=== PATIENT | female | born 1955 | race Caucasian/White ===

== ENCOUNTER 2020-03-13 20:37 | Emergency (ER) | payer MEDICARE, SELFPAY ==
[2020-03-13 20:40] VITALS: BP 198/92; PULSE 89; RESP 16; TEMP 36; O2SAT 100
--- NOTE | 2020-03-13 21:21 | W.ED.GENAD ---
Discharge Plan Disposition Patient Disposition: HOME Condition: Good Discharge Details Chief Complaint: Laceration Clinical Impression: Laceration of left leg, Right ankle sprain Primary Care Provider: Unknown,Unknown ED Provider: David Zapata Home Meds and New Rx's Prescriptions: No Action No Known Home Meds RF: 0 Discharge Instructions Instructions: Laceration (ED) Additional Instructions: Please leave the dressing on for 24 hours, then you may remove and begin cleaning the wound at least twice a day with soap and water. Continue to apply antibiotic ointment. Do not directly soak the area. Watch for any signs of infection and return if any increasing redness, swelling, pain, drainage. Please return in 7 days for reassessment. They may decide to take the sutures out then or wait an additional 3 days. Please use the crutches to keep weight off your right ankle for the time being, after 3 days of nonweightbearing you can gradually apply weight as tolerated to your right ankle. Please take Tylenol and Motrin to help with pain and swelling, ice the ankle frequently, and use an Kevin wrap to keep the swelling down. If you notice any worsening of your symptoms, or any new symptoms such as vomiting, diarrhea, fever, chills, shortness of breath, chest pain, numbness, weakness, or fainting , please return immediately to the emergency department for reevaluation. Please follow up with your primary care provider as soon as possible for reassessment and reevaluation. As always, it was a pleasure participating in your medical care today. Medical Decision Making 65-year-old female with no past medical history presents today for evaluation of laceration to her right redman. Patient states that 4 hours ago she was moving a snowplow when it slipped, and caught her anterior redman on the right scraped down and then cut the bottom aspect. She developed swelling over the right lateral ankle. At the time the patient washed it with water, and then subsequently alcohol. She bandaged it then took Motrin. By the time she arrived she states that her pain is 0 out of 10. Aside for minimal tenderness with palpation she denies any other complaints. She has not had a tetanus shot in years. She denies any numbness tingling or weakness otherwise. No other complaints at this time. Physical exam demonstrates a 8 cm laceration, chevron shaped with the central point pointing proximally. No evidence of deep structure involvement. Subcutaneous fat has been lacerated. There is evidence of a small vessel that has clotted off, venous in nature, not arterial. To subcutaneous sutures were placed followed by 13 superficial sutures. Patient does have mild tenderness over the right lateral malleolus of the ankle, but no deformity, good strength and movement otherwise. I did discuss imaging options for the patient including of the redman and ankle and at this time through notable discussion, weighing the risks and benefits, and a shared decision making process the patient has refused imaging at this time stating that she feels that since she is able to walk on it without significant pain there is no concern for break. Patient is of an appropriate age to make decisions. The patient is of sound mind, appears clinically sober, and has capacity to make decisions by my clinical exam. Respecting the patient's wishes we will hold off on imaging. Tetanus was updated here, she tolerated the suturing very well. Recommend return in 7 days for wound recheck, potential suture removal in 7 to 10 days. I have extensively reviewed the treatment plan and discharge instructions with the patient. I have addressed all patient concerns at this time. The patient was made aware of what symptoms to monitor for that would warrant a return to the emergency department. Discussed the plan with the patient, they demonstrate verbal understanding and agreement with our assessment and plan at this time. Also did recommend Kevin wrap, Tylenol, Motrin, and crutches/nonweightbearing for 3 days. HPI General Date/Time Provider Initiated Documentation: 03/13/20 20:37. HPI Narrative: 65-year-old female with no past medical history presents today for evaluation of laceration to her right redman. Patient states that 4 hours ago she was moving a snowplow when it slipped, and caught her anterior redman on the right scraped down and then cut the bottom aspect. She developed swelling over the right lateral ankle. At the time the patient washed it with water, and then subsequently alcohol. She bandaged it then took Motrin. By the time she arrived she states that her pain is 0 out of 10. Aside for minimal tenderness with palpation she denies any other complaints. She has not had a tetanus shot in years. She denies any numbness tingling or weakness otherwise. No other complaints at this time. Related Data Home Medications Medication Instructions Recorded Confirmed Unknown [No Known Home Meds] 03/13/20 03/13/20 Allergies Allergy/AdvReac Type Severity Reaction Status Date / Time No Known Allergies Allergy Unverified 03/13/20 20:45 General Stated Complaint: Laceration JUAN A: 4 Review of Systems All systems reviewed & are unremarkable except as noted in HPI and below PFSH Medical History No pertinent past medical history (Acute) Surgical History No pertinent past surgical history (Acute) Social History Smoking/Tobacco Use Status: Never Alcohol Intake: never Drug use: Never Substance use type: does not use Do you feel safe at home: Yes Do you feel safe in your relationship?: Yes Exam Narrative Exam Narrative: 1.Const: Well-nourished, Well-developed, appearing stated age 2.Eyes: PERRL, no conjunctival injection, and symmetrical lids. 3.ENT: Atraumatic external nose and ears. Moist MM. Neck: Symmetric, trachea midline, No thyromegaly. 4.CVS: +S1/S2, No murmurs or gallops. Peripheral pulses 2+ and equal in all extremities. Brisk capillary refill in all extremities. 5.RESP: Unlabored respiratory effort. Clear to auscultation bilaterally. No wheezes rales or rhonchi 6.GI: Soft, Nontender/Nondistended, No hepatosplenomegaly. No guarding or rebound. 7.MSK: The patient's right lower extremity demonstrates an abrasion over the mid third of the tibia and then just proximal to the ankle there is a chevron shaped laceration roughly 7 to 8 cm in total length. Pointing proximally. There is a single vessel that appears to have clotted off, it is superficial. No arterial bleeding or active bleeding otherwise. The area demonstrates intact fascial boundaries, no penetration into the deep layers. Patient demonstrates good flexion and extension at the ankle, good dorsiflexion of the toes. Dorsalis pedis and posterior tibial pulse +2 bilaterally, capillary refill brisk. Right ankle demonstrates mild swelling and minimal tenderness of the right lateral malleolus. No laxity in the ankle joint. 8.Skin: Warm, please see musculoskeletal 9.Neuro: behavioral health counselor II-XII grossly intact. Sensation grossly intact, no focal neurologic deficits. 10.Psych: (AAO) x3. Appropriate mood and affect Course Vital Signs Vital signs: Vital Signs Temperature 36 C L 03/13/20 20:40 Pulse 89 03/13/20 20:40 Respiratory Rate 16 03/13/20 20:40 Blood Pressure 198/92 H 03/13/20 20:40 Pulse Oximetry 100 03/13/20 20:40 Temperature 36 C L 03/13/20 20:40 Temperature Source Temporal Artery Scan 03/13/20 20:40 Pulse 89 03/13/20 20:40 Respiratory Rate 16 03/13/20 20:40 Respiratory Effort Non-Labored 03/13/20 20:45 Blood Pressure 198/92 H 03/13/20 20:40 Blood Pressure Position Sitting 03/13/20 20:40 Pulse Oximetry 100 03/13/20 20:40 Oxygen Delivery Method Room Air 03/13/20 20:40 Oxygen Flow Rate 0 03/13/20 20:40 Pain Level 0 03/13/20 20:40 Procedures Laceration Laceration 1: Site: lower extremity (Right redman/ankle) Side (If applicable): right Size (cm): 9 Description: linear and flap Depth: simple, single layer Local Anesthetic: Lidocaine 1% Amount of anesthesia used (mL): 5 Pre-repair: wound explored, irrigated extensively and deep structures intact Skin layer closed with: nylon Size (cm): 4-0 Number of sutures: 13 Technique: simple, interrupted Subcutaneous layer closed with: vicryl Size: 4-0 Number of sutures: 2 Technique: simple, interrupted
== END 2020-03-13 21:45 | disposition home or self-care (01) ==
PROVIDERS: Emergency Provider Student in an Organized Health Care Education/Training Program
DX: S81.811A Laceration without foreign body, right lower leg, initial encounter (principal); S93.401A Sprain of unspecified ligament of right ankle, initial encounter; W31.89XA Contact with other specified machinery, initial encounter
CPT/HCPCS: 12034; 90471

== ENCOUNTER 2020-03-23 12:19 | Emergency (ER) | payer MEDICARE, SELFPAY ==
[2020-03-23 12:24] VITALS: BP 175/74; PULSE 93; RESP 16; TEMP 36.8; O2SAT 99
--- NOTE | 2020-03-23 12:34 | ED.GENADUL_ITS ---
Discharge Plan Disposition Patient Disposition: HOME Condition: Stable Discharge Details Clinical Impression: Visit for suture removal Primary Care Provider: Unknown,Unknown ED Provider: Vivek Hi Home Meds and New Rx's Prescriptions: New amoxicillin-pot clavulanate [Augmentin] 875-125 mg tablet 1 tab PO BID Qty: 14 RF: 0 Discharge Instructions Instructions: Stitches Removal (ED) Additional Instructions: if you have spreading redness, fevers or severe worsening pain return to the emergency department Medical Decision Making Patient had sutures placed in right lower anterior foot after a snow plow fell on her. THe wound is well healed but does have surrounding erythema about 2cm no discharge no severe pain or warmth. Will have nursing remove sutures and start her on augmentin due to concern for wound infection, return precautions given. Has no severe pain or crepitus or tenderness so doubt nec fasc and no fluctuance so doubt abscess Differential Diagnosis Differential Diagnosis: wound infection, suture removal HPI General Mode of arrival: ambulatory . Date/Time Provider Initiated Documentation: 03/23/20 12:29 . Limitations to Documentation: no limitations . Information obtained by: patient . History of Present Illness 65 year old F presents to the emergency department with the chief complaint of suture removal, Patient started experiencing this day(s) (10) No relieving factors improve symptom(s), No exacerbating factors reported . Patient notes no other symptoms.. Related Data Home Medications Medication Instructions Recorded Confirmed amoxicillin-pot clavulanate 1 tab PO BID #14 tab 03/23/20 [Augmentin] Previous Rx's Medication Instructions Recorded amoxicillin-pot clavulanate 1 tab PO BID #14 tab 03/23/20 [Augmentin] Allergies Allergy/AdvReac Type Severity Reaction Status Date / Time No Known Allergies Allergy Unverified 03/23/20 12:27 General Stated Complaint: SutureRem JUAN A: 5 Review of Systems All systems reviewed & are unremarkable except as noted in HPI and below Constitutional Constitutional: Denies chills, Denies fever(s) and Denies weakness ENT Ears, Nose, Mouth, and Throat: Denies change in voice Cardiovascular Cardiovascular: Denies chest pain and Denies dyspnea Respiratory Respiratory: Denies cough and Denies dyspnea Gastrointestinal Gastrointestinal: Denies abdominal pain, Denies nausea and Denies vomiting Musculoskeletal Musculoskeletal: Denies joint swelling Neurologic Neurologic: Denies weakness [facility] Medical History (Updated 03/23/20 @ 12:38 by Vivek Hi MD) No pertinent past medical history Surgical History No pertinent past surgical history Social History Smoking/Tobacco Use Status: Never Alcohol Intake: never Drug use: Never Substance use type: does not use Do you feel safe at home: Yes Do you feel safe in your relationship?: Yes Exam Const General: no acute distress Orientation: alert HENMT Head: normal to inspection Ears: external ears normal General nose exam: external nose normal Mouth: moist mucous membranes Eyes General: appearance normal, both eyes and all related structures Neck Neck: normal visual inspection Resp Effort & Inspection: normal respiratory effort and able to speak in complete sentences Cardio Rate: regular rate Skin General skin exam: no rashes or lesions noted Neuro General: patient alert and patient oriented x3 Extrem General: full ROM and capillary refill normal Psych Mental Status: mental status grossly normal Course Vital Signs Vital signs: Vital Signs Temperature 36.8 C 03/23/20 12:24 Pulse 93 H 03/23/20 12:24 Respiratory Rate 16 03/23/20 12:24 Blood Pressure 175/74 H 03/23/20 12:24 Pulse Oximetry 99 03/23/20 12:24 Temperature 36.8 C 03/23/20 12:24 Temperature Source Skin 03/23/20 12:24 Pulse 93 H 03/23/20 12:24 Respiratory Rate 16 03/23/20 12:24 Respiratory Effort 03/23/20 12:27 Blood Pressure 175/74 H 03/23/20 12:24 Blood Pressure Position Sitting 03/23/20 12:24 Pulse Oximetry 99 03/23/20 12:24 Oxygen Delivery Method Room Air 03/23/20 12:24 Oxygen Flow Rate 0 03/23/20 12:24 Pain Level 2 03/23/20 12:24 Comment 03/23/20 12:24
== END 2020-03-23 12:39 | disposition home or self-care (01) ==
PROVIDERS: Emergency Provider Emergency Medicine
DX: S81.812D Laceration without foreign body, left lower leg, subsequent encounter (principal); W20.8XXD Other cause of strike by thrown, projected or falling object, subsequent encounter; L53.8 Other specified erythematous conditions; Z48.02 Encounter for removal of sutures
CPT/HCPCS: 99282

== ENCOUNTER 2020-04-03 14:17 | Emergency (ER) | payer MEDICARE, SELFPAY ==
[2020-04-03 14:24] VITALS: BP 186/89; PULSE 82; RESP 18; TEMP 36.7; O2SAT 100
--- NOTE | 2020-04-03 15:00 | DI.RAD_ITS ---
EXAM: XR TIB/FIB RT CLINICAL HISTORY: pain, slow healing anterior wound. TECHNIQUE: 2D digital imaging was performed. COMPARISON: No exams were available for comparison FINDINGS: BONES: No acute fracture is present. No bony destructive lesion is seen. Visualized portion of knee a nd ankle joints are unremarkable. SOFT TISSUE: Normal. IMPRESSION: Unremarkable radiographs of the right tibia and fibula. DATA REPOSITORY: RADIATION DOSE DELIVERED:
--- NOTE | 2020-04-03 15:00 | DI.US_ITS ---
EXAM: US LOWER EXTREMITY VENOUS RT CLINICAL HISTORY: RLE swelling, redman wound TECHNIQUE: Right lower extremity venous ultrasound performed using grayscale, color-flow, and spectr al Doppler analysis. COMPARISON: No exams were available for comparison FINDINGS: The right common femoral, femoral and popliteal veins demonstrate normal compressibility, augmentatio n, and color Doppler. The posterior tibial veins are patent. The saphenofemoral junction is unremark able. There is no evidence of a Herbert cyst. Mild edema in the soft tissues. IMPRESSION: No DVT. DATA REPOSITORY:
--- NOTE | 2020-04-03 15:07 | W.ED.GENAD ---
Discharge Plan Disposition Patient Disposition: HOME Condition: Stable Discharge Details Clinical Impression: Cellulitis Primary Care Provider: Unknown,Unknown ED Provider: El Evans Home Meds and New Rx's Prescriptions: New cephalexin 500 mg capsule 500 mg PO TID 7 Days Qty: 21 RF: 0 Continued acetaminophen [Tylenol] 325 mg Tablet 325 mg PO QID PRNRF: 0 Discharge Instructions Instructions: Cellulitis (ED) Additional Instructions: Take Keflex as prescribed. Wet to dry dressings for the next 4 to 5 days and then may let go to air dry. Elevate the leg above the level of the heart for 20 minutes 4-5 times daily and while at rest to reduce swelling. We will place her in a wound care management list to arrange outpatient follow-up and establish primary care. Return if the swelling increases, you develop chest pain or shortness of breath, or any other acute concerns. Medical Decision Making 65-year-old female presents from home. She injured her right anterior tibia by dropping a snowplow vertically on it on March 13. She was seen here for suture repair, seen for suture removal and probable wound infection on March 23. She was prescribed 7 days of amoxicillin which she has finished. She now has right lower extremity edema, pain with walking, poor healing central part of the laceration. Diagnosis would include underlying osteomyelitis, progressive deep space infection, poor healing superficial laceration with mild persistent cellulitis. Must also exclude DVT given the edema. Patient referred for x-ray, ultrasound, laboratory work including inflammatory markers. Her ultrasound shows edema but no evidence of DVT. X-ray unremarkable. Labs are reassuring. We will get her regular doctor. I will place her on Keflex and have her perform wet-to-dry dressings at home. I offered a referral to the [facility] wound [facility] clinic which she declines. She is stable and improved at this time appropriate discharge to home. Lab Data Lab results reviewed: Yes I reviewed the patient's lab results. Labs: Laboratory Results - last 24 hr 04/03/20 04/03/20 15:25 15:25 WBC 4.87 RBC 3.44 L Hgb 10.7 L Hct 33.0 L MCV 95.9 H MCH 31.1 MCHC 32.4 RDW 12.2 Plt Count 403 H MPV 9.4 Immature Gran % 0.2 Neutrophils % 68.4 Lymphocytes % 20.7 Monocytes % 7.6 Eosinophils % 2.7 Basophils % 0.4 Nucleated RBC % 0 Absolute Neutrophils 3.33 Absolute Lymphocytes 1.01 L Absolute Monocytes 0.37 Absolute Eosinophils 0.13 Absolute Basophils 0.02 Sodium 135 L Potassium 4.2 Chloride 100 Carbon Dioxide 27.2 Anion Gap 7.8 BUN 21 H Creatinine 0.97 Estimated GFR/1.73 m2 57.46 Glucose 112 H Calcium 9.0 C-Reactive Protein 0.24 HPI General Mode of arrival: ambulatory. Date/Time Provider Initiated Documentation: 04/03/20 14:20. Limitations to Documentation: no limitations. Information obtained by: patient. History of Present Illness 65 year old F presents to the emergency department with the chief complaint of Slow healing right lower extremity wound, pain, swelling, described as moderate, Quality is described as dull and constant, and is localized to the right and lower extremity. Patient reports no radiation. Patient started experiencing this day(s) and it has been constant. No relieving factors improve symptom(s), No exacerbating factors reported . Patient notes denies fever/chills and weakness. Patient did receive the following treatments prior to arrival, other (Status post 7 days amoxicillin) Related Data Home Medications Medication Instructions Recorded Confirmed acetaminophen [Tylenol] 325 mg PO QID PRN 04/03/20 04/03/20 cephalexin 500 mg PO TID 7 Days #21 cap 04/03/20 Previous Rx's Medication Instructions Recorded cephalexin 500 mg PO TID 7 Days #21 cap 04/03/20 Allergies Allergy/AdvReac Type Severity Reaction Status Date / Time No Known Allergies Allergy Unverified 04/03/20 14:29 General Stated Complaint: Orthopedic JUAN A: 3 Review of Systems Narrative: Denies fever or chills. Pain with walking. Positive swelling right lower extremity. 7 systems reviewed and otherwise negative. [facility] Medical History (Updated 04/03/20 @ 17:50 by El Evans MD) No pertinent past medical history Surgical History No pertinent past surgical history Social History Smoking/Tobacco Use Status: Never Alcohol Intake: never Drug use: Never Substance use type: does not use Do you feel safe at home: Yes Do you feel safe in your relationship?: Yes Exam Narrative Exam Narrative: GEN: awake, alert, oriented 3. Pleasant, well groomed, interactive. HEAD: Normocephalic, atraumatic ENT: Mucous membranes moist, oropharynx unremarkable, External ear exam unremarkable EYES: PERRL, EOMI EXT: Full ROM, right lower extremity pretibial edema, slightly cool to the touch, chevron shaped laceration with surrounding hyperemia and central area of granulation tissue and a white eschar. 2+ DP bilaterally. Left lower extremity unremarkable. Motor 5 out of 5 throughout. Sensation within normal limits. Neuro: Grossly normal neurologic exam, conversant, interactive. Psych: Speech fluent, thoughts congruent, affect normal Course Vital Signs Vital signs: Vital Signs Temperature 36.7 C 04/03/20 14:24 Pulse 82 04/03/20 14:24 Respiratory Rate 18 04/03/20 14:24 Blood Pressure 186/89 H 04/03/20 14:24 Pulse Oximetry 100 04/03/20 14:24 Temperature 36.7 C 04/03/20 14:24 Temperature Source Temporal Artery Scan 04/03/20 14:24 Pulse 82 04/03/20 14:24 Respiratory Rate 18 04/03/20 14:24 Respiratory Effort Non-Labored 04/03/20 14:32 Blood Pressure 186/89 H 04/03/20 14:24 Blood Pressure Position Sitting 04/03/20 14:24 Pulse Oximetry 100 04/03/20 14:24 Oxygen Delivery Method Room Air 04/03/20 14:24 Oxygen Flow Rate 0 04/03/20 14:24 Pain Level 0 04/03/20 14:24
[2020-04-03] MEDS: Normal Saline Flush 10 ML SYR IVP (15:31)
[2020-04-03 15:35] LABS: Abs Immature Grans 0.01 10^3/uL (0.0-0.06); Absolute Basophil Count 0.02 10^3/uL (0.0-0.2); Absolute Eosinophil Count 0.13 10^3/uL (0.0-0.7); Absolute Lymphocyte Count 1.01 10^3/uL (1.2-3.4); Absolute Monocyte Count 0.37 10^3/uL (0.1-0.8); Absolute Neutrophil Count 3.33 10^3/uL (1.2-6.7); Basophils % 0.4; Eosinophils % 2.7; HGB 10.7 g/dL (11.2-15.7); Immature Grans % 0.2; Lymphocytes % 20.7; MCH 31.1 pg (27.0-33.0); MCHC 32.4 % (32.0-36.0); MCV 95.9 fL (80-95); MPV 9.4 fL (8.0-11.0); Monocytes % 7.6; Neutrophils % 68.4; Nucleated RBC 0 %; Platelet Count 403 10^3/uL (130-400); RBC 3.44 10^6/uL (3.93-5.22); RDW 12.2 % (11.7-14.6); RDW-SD 42.6 fL; WBC 4.87 10^3/uL (4.4-10.8)
[2020-04-03 15:44] LABS: Anion Gap 7.8 mmol/L (3-11); BUN 21 mg/dL (7-18); C-Reactive Protein 0.24 mg/dL (0.0-0.3); CO2 27.2 mmol/L (21.0-32.0); CREATININE 0.97 mg/dL (0.55-1.02); Chloride 100 mmol/L (98-107); Estimated GFR 57.46 (mL/min/1.73m2); Glucose 112 mg/dL (74-106); Potassium 4.2 mmol/L (3.5-5.1); Sodium 135 mmol/L (136-145)
--- NOTE | 2020-04-03 16:09 | DI.VRAD_ITS ---
PROCEDURE INFORMATION: Exam: US Duplex Right Lower Extremity Veins, Limited Exam date and time: 04/03/2020 3:57 PM Age: 65 years old Clinical indication: Pain; Other: Trauma to right ankle, right calf swelling. ; Patient HX: RT ankle trauma x 3 weeks ago. TECHNIQUE: Imaging protocol: Real-time Duplex ultrasound of the Right Lower Extremity with 2-D roth scale, color Doppler flow and spectral waveform analysis with image documentation. Limited exam was focused on the right lower extremity veins. COMPARISON: No relevant prior studies available. FINDINGS: Right deep veins: Unremarkable. The common femoral, femoral, proximal profunda femoral and popliteal veins are patent without thrombus. Normal Doppler waveforms. Normal compressibility and/or augmentation response. Right superficial veins: Unremarkable. Saphenofemoral junction is patent without thrombus. Soft tissues: Unremarkable. IMPRESSION: No evidence of deep vein thrombosis. Dictated and Authenticated by: Alejandro Anderson MD. Ordering:JOSSELYN Gallegos MD
--- NOTE | 2020-04-03 16:38 | DI.VRAD_ITS ---
PROCEDURE INFORMATION: Exam: XR Right Tibia and Fibula Exam date and time: 04/03/2020 4:02 PM Age: 65 years old Clinical indication: Injury or trauma; Initial encounter; Lower leg; Right; Foreign body involvement not specified; Patient HX: Slow healing anterior wound TECHNIQUE: Imaging protocol: XR Right tibia and fibula. Views: 2 views. COMPARISON: No relevant prior studies available. FINDINGS: Bones/joints: Normal. Soft tissues: Normal. IMPRESSION: No acute findings. Dictated and Authenticated by: Alejandro Anderson MD. Ordering:JOSSELYN Gallegos MD
[2020-04-03] MEDS: Cephalexin 500 MG CAP, 4 CAPS/BTL PO (17:55)
[2020-04-03 18:02] VITALS: BP 179/79; PULSE 77; RESP 18; TEMP 36.3; O2SAT 100
--- NOTE | 2020-04-07 08:49 | NUR.NOTE ---
Lab called 04/07 at 0845. Right lower leg culture is being sent to [facility] for further testing. Key ED Nursing Note:
== END 2020-04-03 18:02 | disposition home or self-care (01) ==
PROVIDERS: Emergency Provider Emergency Medicine; PCP Nurse Practitioner Family
DX: L03.115 Cellulitis of right lower limb (principal); R60.0 Localized edema
CPT/HCPCS: 36415; 80048; 87077; 99284; 73590; 85025; 86140; 87070; 87186; 87205; 93971